=== PATIENT | female | born 1965 | race Caucasian/White ===

== ENCOUNTER 2024-10-20 08:43 | Day surgery (SDC) | payer OTHER, SELFPAY ==
--- NOTE | 2024-10-18 10:28 | RAD REPORT ---
EXAM: Chest Pa And Lat (2 Views) HISTORY: 59 years Female Pre-op pending rotator cuff repair COMPARISON: None. FINDINGS: LUNGS/PLEURA: The lungs are clear. No pleural effusions or pneumothorax. No pulmonary edema. MEDIASTINUM: The mediastinal silhouette is within normal limits CARDIAC: The cardiac silhouette is within normal limits. UPPER ABDOMEN: No significant abnormality. BONES: No acute abnormality. LINES/TUBES/OTHER: N/A IMPRESSION: No evidence of acute cardiopulmonary disease.
[2024-10-18 10:33] LABS: Absolute Eosinophils 0.1 K/uL (0-0.5); Absolute Lymphocytes (CBC) 2.2 K/uL (0.7-4.9); Absolute Monocytes 0.5 K/uL (0.1-1.3); Absolute Neutrophil 2.8 K/uL (1.8-8.0); Basophils % 0.9 % (0-1.3); Eosinophils % 1.6 % (0-4.4); Hematocrit 36.1 % (36.0-45.0); Hemoglobin 12.2 g/dL (12.0-15.0); Lymphocytes % 39.2 % (15.3-44.8); MCH 30.6 pg (27.0-35.0); MCHC 33.8 g/dL (32.0-36.0); MCV 90.5 fL (80-100); MPV 8.2 fL (7.6-11.3); Monocytes % 8.9 % (3.3-12.3); Neutrophils % 49.4 % (41.7-73.7); Platelets 273 thou/uL (152-406); RBC Red Blood Cell Count 3.99 M/uL (3.86-4.86)
[2024-10-18 10:42] LABS: Anion Gap 6.1 mEq/L (5.0-15.0); Potassium 4.1 mEq/L (3.5-5.1)
[2024-10-18 10:43] LABS: PT Prothrombin Time 10.6 SECONDS (9.4-12.5); PTT, Activated Partial Thromb 35.8 SECONDS (24.3-36.9); Protime INR 1.01
[2024-10-20] MEDS: Ringers Lactate 1,000 ML IV ONE ×2 (09:10→13:00)
[2024-10-20] MEDS ORDERED: LIDOCAINE 1% MPF 5 ML VIAL ONE (09:36)
[2024-10-20] MEDS ORDERED: EPINEPHRINE 1 MG/ML VIAL ONE (09:36)
[2024-10-20] MEDS ORDERED: dexAMETHasone 4 MG/ML VIAL ONE (09:36)
[2024-10-20] MEDS ORDERED: FENTANYL CITR 100 MCG/2 ML ONE (09:48)
[2024-10-20] MEDS ORDERED: MIDAZOLAM HCL 2 MG/2 ML INJ ONE (09:48)
[2024-10-20] MEDS ORDERED: ONDANSETRON 4 MG/2 ML VIAL ONE (10:36)
[2024-10-20] MEDS ORDERED: ROCURONIUM 50 MG/5 ML VIAL IV ONE (10:36)
[2024-10-20] MEDS ORDERED: LIDOCAINE 2% MPF 5 ML VIAL ONE (10:36)
[2024-10-20] MEDS ORDERED: KETOROLAC 30 MG/ML INJ ONE (10:36)
[2024-10-20] MEDS ORDERED: dexAMETHasone 10 MG/ML VIAL ONE (10:36)
[2024-10-20] MEDS ORDERED: propofoL 200 MG/20 ML VIAL IV ONE (10:36)
[2024-10-20] MEDS: CEFAZOLIN SODIUM 2 GM/VIAL ONE (11:05)
[2024-10-20] MEDS: EPINEPHRINE 1 MG/ML VIAL ONE (11:47)
[2024-10-20] MEDS ORDERED: NEOSTIGMINE 1 MG/ML -10 ML VIAL ONE (12:40)
[2024-10-20] MEDS ORDERED: GLYCOPYRROLATE 0.2 MG/ML SYR ONE (12:40)
--- NOTE | 2024-10-20 13:19 | P.BOP ---
Preoperative diagnosis: Right shoulder rotator cuff tear, biceps tendinitis, impingement syndrome Postoperative diagnosis: Same Primary procedure: Right shoulder arthroscopic rotator cuff repair Secondary procedure: Right shoulder arthroscopic biceps tenotomy Other procedure(s): Right shoulder arthroscopic subacromial decompression American Sign Language Interpreter: NONE,NONE Estimated blood loss: 10 cc Specimen: None Findings: See dictation Anesthesia: General Complications: None Implants: 1- 5.5 mm Arthrex corkscrew, 2- 4.75 mm Arthrex swivel lock Fluids & blood products: Per anesthesia record Transferred to: Recovery Room Condition: Good
--- NOTE | 2024-10-20 13:23 | P.OP ---
Preoperative diagnosis: Right shoulder rotator cuff tear, biceps tendinitis, impingement syndrome Postoperative diagnosis: Same Primary procedure: Right shoulder arthroscopic rotator cuff repair Secondary procedure: Right shoulder arthroscopic biceps tenotomy Other procedure(s): Right shoulder arthroscopic subacromial decompression Anesthesia: General Estimated blood loss: 10 cc Specimen: None Findings: See dictation Operative Technique: Indication For Procedure: Venessa is a 59-year-old female who presented to my clinic with signs, symptoms, and MRI findings consistent with a right shoulder full-thickness rotator cuff tear. I discussed with the patient risks and benefits associated with operative and nonoperative treatment. She expressed understanding and elected to proceed with operative treatment. Description Of Procedure: After informed consent was obtained, the patient was identified in the preoperative holding area. The right upper extremity was marked. The patient then was brought to the PACU where she underwent a right- sided interscalene block performed by Anesthesia. The patient was brought back to the operating room, transferred to the operative table in supine fashion, placed under general endotracheal anesthesia. She was then placed in a beach chair position with his extremities well padded. The right upper extremity was then prepped and draped in usual sterile fashion. A time-out was initiated. The correct patient and procedure were performed and identified. The patient did receive preoperative prophylactic antibiotics. Via the posterior portal position, a spinal needle was introduced in the glenohumeral joint and the shoulder was injected with 30 cc of normal saline to distend the capsule. A stab incision was made posteriorly and a posterior portal was created. Arthroscope was brought in via the posterior portal position and diagnostic arthroscopy was performed. Under direct visualization, an anterior portal and cannula were created. There were no significant instability of the superior labrum or anterior posterior labrum, which were stable to probe. There was fraying and tenosynovitis of the bicipital tendon both intra-articular and extra-articular. A biceps tenotomy was performed using a meniscal biter. The anchor was then debrided using the arthroscopic shaver. Subscapularis was found to be stable and intact to probe. There were no loose bodies within the axillary pouch. The patient was noted to have a full-thickness tear of the anterior aspect of the supraspinatus. A lateral portal was created and an arthroscopic shaver was then used to debride the greater tuberosity. The rotator cuff tear was noted to reduce to the greater tuberosity. Greater tuberosity was debrided using the arthroscopic shaver to create a bleeding bony bed. The undersurface of the rotator cuff tear was also debrided using the arthroscopic shaver to remove any unhealthy tissue. The arthroscope was then brought in the subacromial space. A subacromial bursectomy was performed using arthroscopic shaver. The patient was noted to have a full-thickness tear of the supraspinatus, which was mildly retracted. The humeral head was reducible to the greater tuberosity. A lateral stab incision was made just lateral to the acromion. A punch was then placed, was then used to place a 5.5 mm double loaded Arthrex corkscrew. Sutures were then passed through the rotator cuff tear in anterior-posterior fashion, tied in a horizontal mattress fashion. The suture lines were then crisscrossed and 2 lateral Arthrex SwiveLock anchors were placed to increase surface area of the reduction onto the greater tuberosity of the rotator cuff tendon. The remaining suture limbs were then cut. There was some significant fraying of a coracoacromial ligament as well as some undersurface spurring of the acromion and acromioplasty was performed using a radiofrequency ablator and an arthroscopic bur. Arthroscopic instruments were then removed without complication. Wounds were then irrigated thoroughly with normal saline. Subcutaneous tissue was approximated using a 2-0 Vicryl. Portals were approximated using a 3-0 Monocryl. Sterile dressings were applied. Shoulder immobilizer was placed. The patient was awakened and transferred to PACU in stable condition. Postoperative Plan: The patient will be nonweightbearing in a shoulder immobilizer for 6 weeks. We will follow the medium rotator cuff repair protocol 4 weeks postoperatively. Complications: None Implants: 1- 5.5 mm Arthrex corkscrew , 2- 4.75 mm Arthrex swivel lock Fluids & blood products: per anesthesia record Transferred to: Recovery Room Condition: Good
--- NOTE | 2024-10-20 13:46 | RAD REPORT ---
EXAMINATION: Shoulder 1 View CLINICAL INDICATION: Female, 59 years old. S/P R RCR W/SAD, BICEPS TENOTOMY RIGHT COMPARISON: No prior exam. VIEWS: One view FINDINGS: No acute fracture. No malalignment/dislocation. Right AC joint and glenohumeral joint degenerative changes.. Other: n/a IMPRESSION: No acute osseous abnormality.
[2024-10-20] MEDS: HYDROCODONE/APAP 7.5/325 MG TAB ONE (14:10)
[2024-10-20 15:42] VITALS: BP 115/83; TEMP 97.4; O2SAT 100
--- NOTE | 2024-10-23 12:23 | EKG ---
Test Date: 2024-10-18 Test Time: 11:04:52 Keno Dealer: [employer] MEASUREMENT RESULTS: Intervals: Rate: 62 KS: 170 QRSD: 102 QT: 422 QTc: 428 [place]: P: 58 KS: 170 QRS: -14 T: 51 INTERPRETIVE STATEMENTS: Normal sinus rhythm Incomplete right bundle branch block Borderline ECG No previous ECG available for comparison Electronically Signed On 10-23-24 12:15:51 STORAGE BATTERY INSPECTOR by Carlos Joseph
== END 2024-10-20 15:00 | disposition home or self-care (01) ==
LOC: OR 08:43
PROVIDERS: ATTEND Orthopaedic Surgery Sports Medicine
PROC: 0LM14ZZ Reattachment of Right Shoulder Tendon, Percutaneous Endoscopic Approach (ICD-10-PCS; 2024-10-20)
PROC: 0RNJ4ZZ Release Right Shoulder Joint, Percutaneous Endoscopic Approach (ICD-10-PCS; principal; 2024-10-20 11:15)
DX: M75.121 Complete rotator cuff tear or rupture of right shoulder, not specified as traumatic (principal); M75.21 Bicipital tendinitis, right shoulder; M75.41 Impingement syndrome of right shoulder; S46.001A Unspecified injury of muscle(s) and tendon(s) of the rotator cuff of right shoulder, initial encounter
CPT/HCPCS: 36415; 71046; 73020; 80048; 85025; 85610; 85730; 93005; J0171; J1100; J2003; J2250; J2405; J2704; J2710; J3010; J7120